=== PATIENT | female | born 1945 | race Caucasian/White ===

== ENCOUNTER → 2017-01-20 | Outpatient (CLI) | payer MEDICARE ==
[2017-01-20 15:20] LABS: Blood Urea Nitrogen 13 mg/dL (7-17); Non-African American GFR(MDRD) >60 (>60 ml/min/1.73 sqM)
== END | disposition home or self-care (01) ==
LOC: LABWHC1 14:22
PROVIDERS: ATTEND Family Medicine
DX: Z01.818 Encounter for other preprocedural examination (principal)
CPT/HCPCS: 36415; 82565; 84520

== ENCOUNTER → 2017-06-09 | Outpatient (CLI) | payer MEDICARE | END | disposition home or self-care (01) | LOC: LABWHC1 15:11 | PROVIDERS: ATTEND Internal Medicine | DX: D35.2 Benign neoplasm of pituitary gland (principal) | CPT/HCPCS: 36415; 82024; 84305 ==

== ENCOUNTER → 2018-02-11 | Outpatient (CLI) | payer MEDICARE ==
[2018-02-11 17:11] LABS: Calcium 9.9 mg/dL (8.4-10.2); Potassium 4.9 mmol/L (3.5-5.1)
== END | disposition home or self-care (01) ==
LOC: LABWHC1 16:25
PROVIDERS: ATTEND Internal Medicine
DX: D35.2 Benign neoplasm of pituitary gland (principal)
CPT/HCPCS: 36415; 80048

== ENCOUNTER → 2018-04-07 | Outpatient (CLI) | payer MEDICARE ==
--- NOTE | 2018-04-08 09:01 | MM ---
Reason for exam: screening (asymptomatic). Last mammogram was performed 13 years and 2 months ago. History: Patient is postmenopausal. Physical Findings: A clinical breast exam by your physician is recommended on an annual basis and results should be correlated with mammographic findings. MG 3D Screening Mammo W/Cad Bilateral CC and MLO view(s) were taken. Prior study comparison: February 18, 2005, workup left diagnostic mammogram. February 07, 2005, bilateral screening mammogram w/CAD. There are scattered fibroglandular densities. There is no discrete abnormality. No significant changes when compared with prior studies. ASSESSMENT: Negative, BI-RAD 1 RECOMMENDATION: Routine screening mammogram of both breasts in 1 year.
== END | disposition home or self-care (01) ==
LOC: RADMAMWWP 09:53
PROVIDERS: ATTEND Family Medicine
DX: Z12.31 Encounter for screening mammogram for malignant neoplasm of breast (principal)
CPT/HCPCS: 77063; 77067

== ENCOUNTER → 2018-04-07 | Outpatient (CLI) | payer MEDICARE ==
[2018-04-07 13:04] LABS: T4, Free (Free Thyroxine) 0.99 ng/dL (0.78-2.19)
== END | disposition home or self-care (01) ==
LOC: LABWHC1 09:46
PROVIDERS: ATTEND Internal Medicine
DX: D35.2 Benign neoplasm of pituitary gland (principal); E04.1 Nontoxic single thyroid nodule
CPT/HCPCS: 36415; 84146; 84439; 84443; 84481